=== PATIENT | male | born 1995 | race Caucasian/White ===

== ENCOUNTER 2017-12-21 20:52 | Emergency (ER) | payer OTHER, BC ==
[2017-12-21] MEDS: ONDANSETRON (ODT) 4 MG TAB ODT (21:31)
[2017-12-21] MEDS: ACETAMINOPHEN 500 MG TAB PO (21:31)
[2017-12-21] MEDS: DICYCLOMINE 10 MG CAP PO (21:32)
[2017-12-21] MEDS: KETOROLAC 60 MG INJ IM (21:33)
== END 2017-12-21 21:56 | disposition home or self-care (01) ==
LOC: FTE 20:52
DX: B34.9 Viral infection, unspecified (principal)
CPT/HCPCS: 96372; 99284-25